=== PATIENT | male | born 1955 | race Caucasian/White ===

== ENCOUNTER → 2019-02-07 | Day surgery (SDC) | payer BC, MEDICARE ==
[~2019-02-07] MED LIST: Lactated Ringers 1,000 ML IV SCH; Midazolam 1 MG/ML 2 ML SDV ONE; Propofol 200 MG/20 ML SDV ONE; fentaNYL 100 MCG/2 ML SDV ONE
--- NOTE | 2019-02-07 12:12 | OR ---
DATE OF PROCEDURE: 02/07/2019 PREOPERATIVE DIAGNOSIS: History of adenomatous colon polyps. POSTOPERATIVE DIAGNOSES: Unremarkable colonoscopy. History of adenomatous colon polyps. PROCEDURE: Colonoscopy to the cecum. SURGEON: Jeffrey Zapien MD ANESTHESIA: IV anesthesia with monitored anesthesia care. INDICATION: This 63-year-old white male is referred for a colonoscopy. He has history of adenomatous colon polyps. He says his last colonoscopic exam was done 5 years ago. I counseled him for the procedure, including risks and alternatives, and he gave his informed consent to proceed. DESCRIPTION OF PROCEDURE: The patient was placed in the left lateral decubitus position. IV anesthesia was administered by the Anesthesia Service. Time-out was held. A rectal exam was performed, which was unremarkable. The flexible video Olympus colonoscope was introduced through his anus, up his rectum and out his colon all the way to the cecum. Once the cecum was reached, the scope was slowly withdrawn examining the mucosa throughout. No mucosal abnormalities were noted. The scope was retroflexed in the rectum with the distal rectum appearing unremarkable. The scope was straightened and removed. He tolerated the procedure well. Jeffrey Zapien MD /[id number]
== END ==
LOC: JP.SDS 06:46
PROVIDERS: ATTEND Surgery
DX: Z12.11 Encounter for screening for malignant neoplasm of colon (principal); Z86.010 Personal history of colon polyps
CPT/HCPCS: G0105; J2250; J2704; J3010; J7120

== ENCOUNTER 2023-07-15 06:00 | Emergency (ER) | payer MEDICARE ==
[2023-07-15] MEDS ORDERED: Oxymetazoline 0.05% Nasal Spray 30 ML Bottle NAS ONE (06:37)
== END 2023-07-15 07:01 | disposition home or self-care (01) ==
LOC: JP.ED 06:00
DX: R04.0 Epistaxis (principal)
CPT/HCPCS: 99283; A9270

== ENCOUNTER 2024-05-06 15:25 | Emergency (ER) | payer MEDICARE ==
[2024-05-06 15:44] LABS: BASOPHILS ABSOLUTE AUTO 0.03 K/uL (0.00-0.10); BASOPHILS PERCENT AUTO 0.3 % (0.1-1.3); EOSINOPHILS ABSOLUTE AUTO 0.14 K/uL (0.00-0.40); EOSINOPHILS PERCENT AUTO 1.5 % (0.0-5.4); HEMATOCRIT 41.1 % (38.4-49.7); HEMOGLOBIN 14.5 g/dL (12.9-16.9); IMMATURE GRAN ABSOLUTE AUTO 0.03 K/uL (0.00-0.23); IMMATURE GRAN PERCENT AUTO 0.3 % (0.0-0.7); LYMPHOCYTES ABSOLUTE AUTO 3.72 K/uL (0.8-3.3); LYMPHOCYTES PERCENT AUTO 39.9 % (11.4-47.7); MEAN CORPUSCULAR HEMOGLOBIN 28.6 pg (31.6-35.5); MEAN CORPUSCULAR HGB CONC 35.3 g/dL (31.6-35.5); MEAN CORPUSCULAR VOLUME 81.1 fL (81.4-99.0); MONOCYTES ABSOLUTE AUTO 0.76 K/uL (0.20-0.90); MONOCYTES PERCENT AUTO 8.2 % (3.3-12.6); NEUTROPHILS ABSOLUTE AUTO 4.64 K/uL (1.0-7.6); NEUTROPHILS PERCENT AUTO 49.8 % (40.0-78.1); PLATELET COUNT,PLT 194 K/uL (130-375); RED BLOOD CELL COUNT 5.07 M/uL (4.14-5.76); WHITE BLOOD CELL COUNT,WBC 9.3 K/uL (3.2-11.0)
[2024-05-06] MEDS: Ondansetron 4 MG/2 ML SDV IVPUSH ONE (15:54)
[2024-05-06] MEDS: Meclizine 25 MG Tab PO ONE (15:54)
[2024-05-06] MEDS: Sodium Chloride 0.9% 1,000 ML IV SCH (15:54)
[2024-05-06 16:51] LABS: A/G RATIO 0.8 (1.2-2.2); ALANINE AMINOTRANSFERASE,ALT 27 U/L (12-78); ALBUMIN 3.6 g/dL (3.4-5.0); ALKALINE PHOSPHATASE 54 U/L (46-116); ASPARTATE AMNIOTRANSFERASE,AST 20 U/L (15-37); BILIRUBIN TOTAL 0.7 mg/dL (0.2-1.0); BLOOD UREA NITROGEN,BUN 13 mg/dL (7-18); CALCIUM 8.8 mg/dL (8.5-10.1); CARBON DIOXIDE,CO2 24 mmol/L (21-32); EST CRCL DRUG DOSING (CG) 75.44 mL/min; ESTIMATED GFR 81 mL/min (>60); GLUCOSE RANDOM 109 mg/dL (74-106)
[2024-05-06 17:22] LABS: POTASSIUM,K 3.7 mmol/L (3.6-5.2); SODIUM,NA 142 mmol/L (140-148)
[2024-05-06 18:43] LABS: APPEARANCE,URINE CLEAR (CLEAR); BILIRUBIN,URINE NEGATIVE (NEGATIVE); COLOR,URINE YELLOW (YELLOW); GLUCOSE,URINE NEGATIVE (NEGATIVE); KETONES,URINE NEGATIVE (NEGATIVE); LEUKOCYTE ESTERASE,URINE NEGATIVE (NEGATIVE); NITRITE,URINE NEGATIVE (NEGATIVE); OCCULT BLOOD,URINE NEGATIVE (NEGATIVE); PROTEIN,URINE TRACE mg/dL (NEGATIVE); UROBILINOGEN,URINE 0.2 EU/dL (0.2-1.0)
[2024-05-06 18:44] LABS: AMORPHOUS SEDIMENT,URINE NOT SEEN; BACTERIA,URINE RARE; EPITHELIAL CELLS,URINE RARE; MUCUS,URINE FEW; RBC,URINE 0-5 (0-5); WBC,URINE 0-5 (0-5)
== END 2024-05-06 18:48 | disposition home or self-care (01) ==
LOC: JP.ED 15:25
DX: H83.2X1 Labyrinthine dysfunction, right ear (principal); Z79.82 Long term (current) use of aspirin; H55.00 Unspecified nystagmus
CPT/HCPCS: 36415; 70450; 80053; 81001; 85025; 96361; 96374; 99285; A9270; J2405; J7030; 82947

== ENCOUNTER 2024-07-18 09:58 | Emergency (ER) | payer MEDICARE ==
[2024-07-18 11:20] LABS: BASOPHILS ABSOLUTE AUTO 0.04 K/uL (0.00-0.10); BASOPHILS PERCENT AUTO 0.4 % (0.1-1.3); EOSINOPHILS ABSOLUTE AUTO 0.06 K/uL (0.00-0.40); EOSINOPHILS PERCENT AUTO 0.7 % (0.0-5.4); HEMATOCRIT 36.6 % (38.4-49.7); HEMOGLOBIN 12.6 g/dL (12.9-16.9); IMMATURE GRAN ABSOLUTE AUTO 0.04 K/uL (0.00-0.23); IMMATURE GRAN PERCENT AUTO 0.4 % (0.0-0.7); LYMPHOCYTES ABSOLUTE AUTO 1.34 K/uL (0.8-3.3); LYMPHOCYTES PERCENT AUTO 14.7 % (11.4-47.7); MEAN CORPUSCULAR HGB CONC 34.4 g/dL (31.6-35.5); MEAN CORPUSCULAR VOLUME 84.1 fL (81.4-99.0); MONOCYTES ABSOLUTE AUTO 0.53 K/uL (0.20-0.90); MONOCYTES PERCENT AUTO 5.8 % (3.3-12.6); NEUTROPHILS ABSOLUTE AUTO 7.08 K/uL (1.0-7.6); PLATELET COUNT,PLT 243 K/uL (130-375); RED BLOOD CELL COUNT 4.35 M/uL (4.14-5.76); WHITE BLOOD CELL COUNT,WBC 9.1 K/uL (3.2-11.0)
[2024-07-18 11:47] LABS: A/G RATIO 0.5 (1.2-2.2); ALANINE AMINOTRANSFERASE,ALT 22 U/L (12-78); ALBUMIN 2.7 g/dL (3.4-5.0); ALKALINE PHOSPHATASE 48 U/L (46-116); ASPARTATE AMNIOTRANSFERASE,AST 28 U/L (15-37); BILIRUBIN TOTAL 0.6 mg/dL (0.2-1.0); BLOOD UREA NITROGEN,BUN 17 mg/dL (7-18); CALCIUM 9.1 mg/dL (8.5-10.1); CARBON DIOXIDE,CO2 25 mmol/L (21-32); CHLORIDE,CL 104 mmol/L (100-108); CREATININE 0.8 mg/dL (0.8-1.3); ESTIMATED GFR 95 mL/min (>60); GLUCOSE RANDOM 102 mg/dL (74-106); POTASSIUM,K 4.3 mmol/L (3.6-5.2); PROTEIN TOTAL,TP 7.9 g/dL (6.4-8.2); SODIUM,NA 138 mmol/L (140-148)
[2024-07-18 11:48] LABS: ANION GAP 13.3 mmol/L (5.0-14.0)
== END 2024-07-18 12:53 | disposition home or self-care (01) ==
LOC: JP.ED 09:58
DX: R55 Syncope and collapse (principal); Z79.82 Long term (current) use of aspirin; Z79.899 Other long term (current) drug therapy
CPT/HCPCS: 36415; 80053; 85025; 86140; 93005; 99284

== ENCOUNTER 2024-07-23 09:16 | Inpatient (IN) | payer MEDICARE ==
[2024-07-23 10:31] LABS: BASOPHILS PERCENT AUTO 0.2 % (0.1-1.3); EOSINOPHILS ABSOLUTE AUTO 0.04 K/uL (0.00-0.40); EOSINOPHILS PERCENT AUTO 0.5 % (0.0-5.4); HEMATOCRIT 23.9 % (38.4-49.7); IMMATURE GRAN ABSOLUTE AUTO 0.04 K/uL (0.00-0.23); IMMATURE GRAN PERCENT AUTO 0.5 % (0.0-0.7); LYMPHOCYTES ABSOLUTE AUTO 1.99 K/uL (0.8-3.3); LYMPHOCYTES PERCENT AUTO 23.9 % (11.4-47.7); MEAN CORPUSCULAR HEMOGLOBIN 29.3 pg (31.6-35.5); MEAN CORPUSCULAR HGB CONC 33.5 g/dL (31.6-35.5); MEAN CORPUSCULAR VOLUME 87.5 fL (81.4-99.0); MONOCYTES ABSOLUTE AUTO 0.62 K/uL (0.20-0.90); MONOCYTES PERCENT AUTO 7.5 % (3.3-12.6); NEUTROPHILS PERCENT AUTO 67.4 % (40.0-78.1); PLATELET COUNT,PLT 228 K/uL (130-375); RED BLOOD CELL COUNT 2.73 M/uL (4.14-5.76); WHITE BLOOD CELL COUNT,WBC 8.3 K/uL (3.2-11.0)
[2024-07-23 10:32] LABS: BASOPHILS ABSOLUTE AUTO 0.02 K/uL (0.00-0.10)
[2024-07-23 10:50] LABS: INR 1.1; PROTHROMBIN TIME 11.4 sec (9.2-10.6)
[2024-07-23 10:52] LABS: A/G RATIO 0.6 (1.2-2.2); ALANINE AMINOTRANSFERASE,ALT 25 U/L (12-78); ALBUMIN 2.5 g/dL (3.4-5.0); ALKALINE PHOSPHATASE 43 U/L (46-116); ASPARTATE AMNIOTRANSFERASE,AST 22 U/L (15-37); BILIRUBIN TOTAL 0.6 mg/dL (0.2-1.0); BLOOD UREA NITROGEN,BUN 7 mg/dL (7-18); CALCIUM 8.5 mg/dL (8.5-10.1); CARBON DIOXIDE,CO2 25 mmol/L (21-32); CHLORIDE,CL 104 mmol/L (100-108); EST CRCL DRUG DOSING (CG) 77.68 mL/min; ESTIMATED GFR 81 mL/min (>60); GLUCOSE RANDOM 98 mg/dL (74-106); POTASSIUM,K 3.6 mmol/L (3.6-5.2); PROTEIN TOTAL,TP 6.8 g/dL (6.4-8.2); SODIUM,NA 137 mmol/L (140-148)
[2024-07-23 10:53] LABS: ANION GAP 11.6 mmol/L (5.0-14.0)
[2024-07-23] MEDS: Pantoprazole 40 MG Vial IVPUSH ONE (11:24)
[2024-07-23] MEDS ORDERED: Ondansetron 4 MG Tab.DIS PO PRN (15:40)
[2024-07-23] MEDS ORDERED: Magnesium Hydroxide 400 MG/5 ML Susp 30 ML Cup PO PRN (15:40)
[2024-07-23] MEDS ORDERED: Ondansetron 4 MG/2 ML SDV IV PRN (15:40)
[2024-07-23] MEDS ORDERED: Sennosides/Docusate Sodium 50-8.6 MG Tab PO PRN (15:40)
[2024-07-23] MEDS: Acetaminophen 325 MG Tab PO PRN (16:26)
[2024-07-23] MEDS: Sucralfate 1 GM Tab PO SCH (16:39)
[2024-07-23] MEDS: Sodium Chloride 0.9% 1,000 ML IV SCH (20:19)
[2024-07-23] MEDS: SUCRALFATE 1 GM PO SCH (20:53)
[2024-07-23] MEDS: CEFADROXIL 500 MG PO SCH (20:54)
[2024-07-23] MEDS: Pantoprazole 40 MG Vial IV SCH (21:15)
[2024-07-24 05:12] LABS: HEMATOCRIT 25.7 % (38.4-49.7); HEMOGLOBIN 8.7 g/dL (12.9-16.9); MEAN CORPUSCULAR HEMOGLOBIN 29.3 pg (31.6-35.5); MEAN CORPUSCULAR HGB CONC 33.9 g/dL (31.6-35.5); MEAN CORPUSCULAR VOLUME 86.5 fL (81.4-99.0); RED BLOOD CELL COUNT 2.97 M/uL (4.14-5.76); WHITE BLOOD CELL COUNT,WBC 8.1 K/uL (3.2-11.0)
[2024-07-24] MEDS ORDERED: Propofol 200 MG/20 ML SDV ONE (10:04)
[2024-07-24] MEDS ORDERED: fentaNYL 50 MCG/ML SDV ONE (10:04)
[2024-07-24] MEDS: Bisacodyl 5 MG Tab PO ONE (14:59)
[2024-07-24] MEDS: Polyethylene Glycol 3350 Powder 238 GM Bot PO ONE (16:23)
[2024-07-24] MEDS: Pantoprazole 40 MG Tab.CR PO SCH (17:07)
[2024-07-25 05:34] LABS: HEMATOCRIT 26.4 % (38.4-49.7); HEMOGLOBIN 8.9 g/dL (12.9-16.9); MEAN CORPUSCULAR HEMOGLOBIN 28.9 pg (31.6-35.5); MEAN CORPUSCULAR HGB CONC 33.7 g/dL (31.6-35.5); MEAN CORPUSCULAR VOLUME 85.7 fL (81.4-99.0); RED BLOOD CELL COUNT 3.08 M/uL (4.14-5.76); WHITE BLOOD CELL COUNT,WBC 8.9 K/uL (3.2-11.0)
[2024-07-25] MEDS ORDERED: fentaNYL 100 MCG/2 ML SDV ONE (07:00)
[2024-07-25] MEDS ORDERED: Propofol 200 MG/20 ML SDV ONE (07:00)
== END 2024-07-25 10:02 | disposition home or self-care (01) | DRG 378 ==
LOC: JP.ED 09:16 → JP.MS 14:03 → OBSVTOIN 07-24 11:27
PROVIDERS: ADMIT Internal Medicine; ATTEND Internal Medicine
PROC: 30233N1 Transfusion of Nonautologous Red Blood Cells into Peripheral Vein, Percutaneous Approach (ICD-10-PCS; 2024-07-23)
PROC: 0DB48ZX Excision of Esophagogastric Junction, Via Natural or Artificial Opening Endoscopic, Diagnostic (ICD-10-PCS; 2024-07-24)
PROC: 0DJD8ZZ Inspection of Lower Intestinal Tract, Via Natural or Artificial Opening Endoscopic (ICD-10-PCS; principal; 2024-07-25 12:00)
DX: K92.2 Gastrointestinal hemorrhage, unspecified (principal); K92.1 Melena; D62 Acute posthemorrhagic anemia; L02.512 Cutaneous abscess of left hand; L03.114 Cellulitis of left upper limb; K25.4 Chronic or unspecified gastric ulcer with hemorrhage; Z79.82 Long term (current) use of aspirin; Z79.899 Other long term (current) drug therapy; Z86.0100 Personal history of colon polyps, unspecified; Z87.81 Personal history of (healed) traumatic fracture; Z98.890 Other specified postprocedural states
CPT/HCPCS: 36415 ×2; 36430; 80053; 85018; 85025; 85027; 85610; 86850; 86900; 86901; 86920; 86922; A9270 ×5; J2470 ×2; J2704; J3010; J7030; P9016; 88305; 96374; 99285; 99285-25